=== PATIENT | female | born 1990 | race African-American/Black ===

== ENCOUNTER 2018-11-16 15:52 | Emergency (ER) | payer BC ==
[2018-11-16 16:03] VITALS: BP 111/74; PULSE 100; RESP 18; TEMP 98.6
[2018-11-16] MEDS ORDERED: SODIUM CHLORIDE 0.9% 1,000 ML IV ONE (16:15)
[2018-11-16 16:57] LABS: Basophils # (A) 0.1 k/uL (0-0.2); Basophils % (A) 1 %; Eosinophils # (A) 0.5 k/uL (0-0.7); Eosinophils % (A) 6 %; HCT 41.1 % (34.0-46.0); HGB 13.6 gm/dL (11.4-16.0); Lymphocytes # (A) 2.9 k/uL (1.0-4.8); Lymphocytes % (A) 35 %; MCH 28.2 pg (25.0-35.0); MCHC 33.1 g/dL (31.0-37.0); Mean Platelet Volume 5.7; Monocytes # (A) 0.3 k/uL (0-1.0); Monocytes % (A) 3 %; Neutrophils # (A) 4.3 k/uL (1.3-7.7); Neutrophils % (A) 53 %; Platelet Count 382 k/uL (150-450); RBC 4.83 m/uL (3.80-5.40); RDW 12.6 % (11.5-15.5); WBC 8.1 k/uL (3.8-10.6)
[2018-11-16 17:00] LABS: Appearance,Urine Cloudy (Clear); Bilirubin,Urine Negative (Negative); Blood,Urine Trace (Negative); Color,Urine Yellow; Glucose,Urine (UA) Negative (Negative); Ketones,Urine Negative (Negative); Leukocyte Esterase,Urine Large (Negative); Mucus,Urine Few /hpf; Nitrite,Urine Negative (Negative); Protein,Urine Trace (Negative); RBC,Urine 3 /hpf (0-5); Specific Gravity,Urine 1.025 (1.001-1.035); Squamous Epithelial Cell,Urine 11 /hpf (0-4); Urobilinogen,Urine <2.0 mg/dL (<2.0); WBC,Urine 4 /hpf (0-5)
[2018-11-16 17:01] LABS: ALT 14 U/L (9-52); AST 18 U/L (14-36); African American GFR (CKD) >90 (>60 ml/min/1.73 sqM); Albumin 4.2 g/dL (3.5-5.0); Alkaline Phosphatase 56 U/L (38-126); Anion Gap 7 mmol/L; Blood Urea Nitrogen 13 mg/dL (7-17); Calcium 9.7 mg/dL (8.4-10.2); Carbon Dioxide 28 mmol/L (22-30); Chloride 106 mmol/L (98-107); Glucose 79 mg/dL (74-99); Potassium 3.9 mmol/L (3.5-5.1); Sodium 141 mmol/L (137-145); Total Bilirubin 0.6 mg/dL (0.2-1.3); Total Protein 7.2 g/dL (6.3-8.2)
--- NOTE | 2018-11-16 17:22 | ED ---
Female Urogenital HPI - General Chief complaint: Urogenital Stated complaint: test Time Seen by Provider: 11/16/18 16:15 Source: patient, RN notes reviewed, old records reviewed Mode of arrival: ambulatory Limitations: no limitations - History of Present Illness Initial comments: This is a 27-year-old female the ER for evaluation. Positive . Patient has recent history of last menstrual period 2 weeks ago. Patient has had positive past test at home in with vaginal bleeding today. Some abdominal cramping mild nausea no vomiting no prior history of . MD Complaint: vaginal bleeding, pelvic pain (Rapid) -: days(s) Location: suprapubic Radiation: non-radiating Severity: mild Severity scale (1-10): 2 Quality: cramping Consistency: intermittent Improves with: none Worsens with: none Last Menstrual Period: 10/14/18 Patient : Yes Associated Symptoms: vaginal bleeding, abdominal pain - Related Data Home Medications Medication Instructions Recorded Confirmed Albuterol Inhaler [Ventolin Hfa 1 - 2 puff INHALATION RT-Q6H PRN 11/16/18 Inhaler] Multivitamin [Multivitamins Adult 2 tab PO DAILY 11/16/18 11/16/18 Gummies] Allergies Allergy/AdvReac Type Severity Reaction Status Date / Time No Known Allergies Allergy Verified 11/16/18 16:40 Review of Systems ROS Statement: Those systems with pertinent positive or pertinent negative responses have been documented in the HPI. ROS Other: All systems not noted in ROS Statement are negative. Past Medical History Past Medical History: Asthma History of Any Multi-Drug Resistant Organisms: None Reported Past Surgical History: No Surgical Hx Reported Past Psychological History: ADD/ADHD Smoking Status: Current every day smoker Past Alcohol Use History: Occasional Past Drug Use History: None Reported General Exam Limitations: no limitations General appearance: alert, in no apparent distress Head exam: Present: atraumatic, normocephalic, normal inspection Eye exam: Present: normal appearance, EOMI. Absent: scleral icterus, conjunctival injection, periorbital swelling ENT exam: Present: normal exam, mucous membranes moist Neck exam: Present: normal inspection. Absent: tenderness, meningismus, lymphadenopathy Respiratory exam: Present: normal lung sounds bilaterally. Absent: respiratory distress, wheezes, rales, rhonchi, stridor Cardiovascular Exam: Present: regular rate, normal rhythm, normal heart sounds. Absent: systolic murmur, diastolic murmur, rubs, gallop, clicks GI/Abdominal exam: Present: soft, normal bowel sounds. Absent: distended, tenderness, guarding, rebound, rigid Extremities exam: Present: normal inspection, full ROM, normal capillary refill. Absent: tenderness, pedal edema, joint swelling, calf tenderness Back exam: Present: normal inspection Neurological exam: Present: alert, oriented X3, CN II-XII intact Psychiatric exam: Present: normal affect, normal mood Skin exam: Present: warm, dry, intact, normal color. Absent: rash Course Vital Signs 11/16/18 16:00 Temperature 98.6 F Pulse Rate 100 Respiratory 18 Rate Blood Pressure 111/74 O2 Sat by Pulse 100 Oximetry - Reevaluation(s) Reevaluation #1: 11/16/18 17:22 Adequate record reviewed Reevaluation #2: 11/16/18 19:05 Spoke with patient was updated on results, questions are answered Medical Decision Making - Medical Decision Making 27 female the ER for evaluation evaluating of bleeding in . Patient is blood type positive, no significant vaginal bleeding in the ER 8 only 700, ultrasound as expected negative. Patient will return for repeat beta hCG testing and outpatient lab in 2 days. Patient is no acute distress and can be discharged home - Lab Data Result diagrams: 11/16/18 16:30 11/16/18 16:30 Lab Results 11/16/18 11/16/18 11/16/18 Range/Units 16:30 16:30 16:30 WBC 8.1 (3.8-10.6) k/uL RBC 4.83 (3.80-5.40) m/uL Hgb 13.6 (11.4-16.0) gm/dL Hct 41.1 (34.0-46.0) % MCV 85.0 (80.0-100.0) fL MCH 28.2 (25.0-35.0) pg MCHC 33.1 (31.0-37.0) g/dL RDW 12.6 (11.5-15.5) % Plt Count 382 (150-450) k/uL Neutrophils % 53 % Lymphocytes % 35 % Monocytes % 3 % Eosinophils % 6 % Basophils % 1 % Neutrophils # 4.3 (1.3-7.7) k/uL Lymphocytes # 2.9 (1.0-4.8) k/uL Monocytes # 0.3 (0-1.0) k/uL Eosinophils # 0.5 (0-0.7) k/uL Basophils # 0.1 (0-0.2) k/uL PT (9.0-12.0) sec INR (<1.2) APTT (22.0-30.0) sec Sodium 141 (137-145) mmol/L Potassium 3.9 (3.5-5.1) mmol/L Chloride 106 (98-107) mmol/L Carbon Dioxide 28 (22-30) mmol/L Anion Gap 7 mmol/L BUN 13 (7-17) mg/dL Creatinine 0.89 (0.52-1.04) mg/dL Est GFR (CKD-EPI)AfAm >90 (>60 ml/min/1.73 sqM) Est GFR (CKD-EPI)NonAf 90 (>60 ml/min/1.73 sqM) Glucose 79 (74-99) mg/dL Calcium 9.7 (8.4-10.2) mg/dL Total Bilirubin 0.6 (0.2-1.3) mg/dL AST 18 (14-36) U/L ALT 14 (9-52) U/L Alkaline Phosphatase 56 (38-126) U/L Total Protein 7.2 (6.3-8.2) g/dL Albumin 4.2 (3.5-5.0) g/dL HCG, Quant mIU/mL Urine Color Urine Appearance (Clear) Urine pH (5.0-8.0) Ur Specific [place] (1.001-1.035) Urine Protein (Negative) Urine Glucose (UA) (Negative) Urine Ketones (Negative) Urine Blood (Negative) Urine Nitrite (Negative) Urine Bilirubin (Negative) Urine Urobilinogen (<2.0) mg/dL Ur Leukocyte Esterase (Negative) Urine RBC (0-5) /hpf Urine WBC (0-5) /hpf Ur Squamous Epith Cells (0-4) /hpf Urine Mucus (None) /hpf Urine HCG, Qual (Not Detectd) Blood Type O Positive Blood Type Recheck No Previous Record Bld Type Recheck Status ABR ONLY 09/30/19 09/30/19 09/30/19 Range/Units 16:30 16:30 16:30 WBC (3.8-10.6) k/uL RBC (3.80-5.40) m/uL Hgb (11.4-16.0) gm/dL Hct (34.0-46.0) % MCV (80.0-100.0) fL MCH (25.0-35.0) pg MCHC (31.0-37.0) g/dL RDW (11.5-15.5) % Plt Count (150-450) k/uL Neutrophils % % Lymphocytes % % Monocytes % % Eosinophils % % Basophils % % Neutrophils # (1.3-7.7) k/uL Lymphocytes # (1.0-4.8) k/uL Monocytes # (0-1.0) k/uL Eosinophils # (0-0.7) k/uL Basophils # (0-0.2) k/uL PT 11.0 (9.0-12.0) sec INR 1.0 (<1.2) APTT 27.0 (22.0-30.0) sec Sodium (137-145) mmol/L Potassium (3.5-5.1) mmol/L Chloride (98-107) mmol/L Carbon Dioxide (22-30) mmol/L Anion Gap mmol/L BUN (7-17) mg/dL Creatinine (0.52-1.04) mg/dL Est GFR (CKD-EPI)AfAm (>60 ml/min/1.73 sqM) Est GFR (CKD-EPI)NonAf (>60 ml/min/1.73 sqM) Glucose (74-99) mg/dL Calcium (8.4-10.2) mg/dL Total Bilirubin (0.2-1.3) mg/dL AST (14-36) U/L ALT (9-52) U/L Alkaline Phosphatase (38-126) U/L Total Protein (6.3-8.2) g/dL Albumin (3.5-5.0) g/dL HCG, Quant mIU/mL Urine Color Yellow Urine Appearance Cloudy H (Clear) Urine pH 6.0 (5.0-8.0) Ur Specific [place] 1.025 (1.001-1.035) Urine Protein Trace H (Negative) Urine Glucose (UA) Negative (Negative) Urine Ketones Negative (Negative) Urine Blood Trace H (Negative) Urine Nitrite Negative (Negative) Urine Bilirubin Negative (Negative) Urine Urobilinogen <2.0 (<2.0) mg/dL Ur Leukocyte Esterase Large H (Negative) Urine RBC 3 (0-5) /hpf Urine WBC 4 (0-5) /hpf Ur Squamous Epith Cells 11 H (0-4) /hpf Urine Mucus Few H (None) /hpf Urine HCG, Qual Detected (Not Detectd) Blood Type Blood Type Recheck Bld Type Recheck Status 11/16/18 Range/Units 16:30 WBC (3.8-10.6) k/uL RBC (3.80-5.40) m/uL Hgb (11.4-16.0) gm/dL Hct (34.0-46.0) % MCV (80.0-100.0) fL MCH (25.0-35.0) pg MCHC (31.0-37.0) g/dL RDW (11.5-15.5) % Plt Count (150-450) k/uL Neutrophils % % Lymphocytes % % Monocytes % % Eosinophils % % Basophils % % Neutrophils # (1.3-7.7) k/uL Lymphocytes # (1.0-4.8) k/uL Monocytes # (0-1.0) k/uL Eosinophils # (0-0.7) k/uL Basophils # (0-0.2) k/uL PT (9.0-12.0) sec INR (<1.2) APTT (22.0-30.0) sec Sodium (137-145) mmol/L Potassium (3.5-5.1) mmol/L Chloride (98-107) mmol/L Carbon Dioxide (22-30) mmol/L Anion Gap mmol/L BUN (7-17) mg/dL Creatinine (0.52-1.04) mg/dL Est GFR (CKD-EPI)AfAm (>60 ml/min/1.73 sqM) Est GFR (CKD-EPI)NonAf (>60 ml/min/1.73 sqM) Glucose (74-99) mg/dL Calcium (8.4-10.2) mg/dL Total Bilirubin (0.2-1.3) mg/dL AST (14-36) U/L ALT (9-52) U/L Alkaline Phosphatase (38-126) U/L Total Protein (6.3-8.2) g/dL Albumin (3.5-5.0) g/dL HCG, Quant 702.3 mIU/mL Urine Color Urine Appearance (Clear) Urine pH (5.0-8.0) Ur Specific [place] (1.001-1.035) Urine Protein (Negative) Urine Glucose (UA) (Negative) Urine Ketones (Negative) Urine Blood (Negative) Urine Nitrite (Negative) Urine Bilirubin (Negative) Urine Urobilinogen (<2.0) mg/dL Ur Leukocyte Esterase (Negative) Urine RBC (0-5) /hpf Urine WBC (0-5) /hpf Ur Squamous Epith Cells (0-4) /hpf Urine Mucus (None) /hpf Urine HCG, Qual (Not Detectd) Blood Type Blood Type Recheck Bld Type Recheck Status - Radiology Data Radiology results: report reviewed (Ultrasound is negative for significant acute disease no topical or no free fluid no IUP), image reviewed Disposition Clinical Impression: Early stage of , Vaginal bleeding during , Threatened a bortion Disposition: HOME SELF-CARE Condition: Good Instructions (If sedation given, give patient instructions): (ED), Threatened Miscarriage (ED), Ectopic (DC) Is patient prescribed a controlled substance at d/c from ED?: No Referrals: None,Stated [Primary Care Provider] - 1-2 days
--- NOTE | 2018-11-16 17:58 | US ---
EXAMINATION TYPE: Transabdominal DATE OF EXAM: 11/16/2018 5:30 PM COMPARISON: NONE CLINICAL HISTORY: pain. Spotted yesterday not today. EXAM PERFORMED: Transabdominal (TA) EXAM MEASUREMENTS: GESTATIONAL AGE / DATING Physician Established: Not yet established Dates by LMP: LMP unknown Dates by First Scan: No previous this is first scan Dates by Current Scan for: No IUP seen at this time MATERNAL ANATOMY Uterus: 8.0 x 5.4 x 5.3 cm Right Ovary: 2.5 x 1.5 x 1.9 cm Left Ovary: 2.6 x 2.3 x 2.7 cm Post CDS / Adnexa: wnl Presence of free fluid: no Presence of corpus luteal cyst: no Presence of subchorionic bleed: no GESTATION / SURVEY IUP: No IUP seen at this time Beta HcG (if available): Detected IMPRESSION: Empty uterus. No adnexal mass or free fluid. No evidence of a gestational sac.
== END 2018-11-16 19:20 | disposition home or self-care (01) ==
LOC: EC 15:52
DX: O20.0 Threatened abortion (principal); O99.519 Diseases of the respiratory system complicating pregnancy, unspecified trimester; J45.909 Unspecified asthma, uncomplicated; O99.330 Smoking (tobacco) complicating pregnancy, unspecified trimester; F17.200 Nicotine dependence, unspecified, uncomplicated; Z79.899 Other long term (current) drug therapy; Z3A.00 Weeks of gestation of pregnancy not specified
CPT/HCPCS: 36415; 76801; 80053; 81001; 81025; 84702; 85025; 85610; 85730; 86900; 86901; 96360; 99284

== ENCOUNTER → 2018-11-20 | Outpatient (CLI) | payer BC | END | disposition home or self-care (01) | LOC: LABWHC1 11:19 | PROVIDERS: ATTEND Emergency Medicine | DX: O20.0 Threatened abortion (principal); Z3A.00 Weeks of gestation of pregnancy not specified | CPT/HCPCS: 36415; 84702 ==

== ENCOUNTER 2019-04-12 18:32 | Outpatient (CLI) | payer BC ==
[2019-04-12 19:02] VITALS: BP 115/63; PULSE 83; RESP 16; TEMP 97.6
--- NOTE | 2019-04-18 11:14 | P.MSEPDOC ---
Presenting Problems - Arrival Data Date of Arrival on Unit: 04/12/19 Time of Arrival on Unit: 18:32 Mode of Transport: Ambulatory - Complaint OB-Reason for Admission/Chief Complaint: Other Comment: abdominal pain when pt bends over or sits down a work, pt points to lower abdomen Medical History - Information : 1 Para: 0 Term: 0 : 0 Abortions: Spontaneous or Elective: 0 Number of Living Children: 0 - Gestational Age Gestational Age by BARAK (wks/days): 25 Weeks and 1 Days Review of Systems - Review of Systems Constitutional: No problems Breast: No problems ENT: No problems Cardiovascular: No problems Respiratory: No problems Gastrointestinal: No problems Genitourinary: No problems Musculoskeletal: No problems Neurological: No problems Skin: No problems Vital Signs - Temperature Temperature: 97.6 F Temperature Source: Oral - Pulse Right Sitting Brachial Pulse Rate: 83 Pulse Assessment Method: Automatic Cuff - Respirations Respiratory Rate: 16 O2 Sat by Pulse Oximetry: 99 - Blood Pressure Right Arm Blood Pressure: 115/63 Blood Pressure Mean: 80 Blood Pressure Source: Automatic Cuff Medical Screen Scoring (Pre) - Cervical Exam Dilation: Exam Deferred Effacement: Exam Deferred Membranes: Intact - Uterine Contractions Frequency: N/A Duration: N/A Intensity: N/A - Maternal Vital Signs Maternal Temperature: N/A Signs of Preeclampsia: N/A Maternal Respirations: N/A - Maternal Trauma Maternal Trauma: N/A - Assessment - Baby A Baseline FHR: 150 Heart Rate - NICHD Category: Category I (Normal) = 0 Position: N/A - Total Score - Baby A Total Score - Baby A: 0 - Total Score - Baby B Total Score - Baby B: 0 - Total Score - Baby C Total Score - Baby C: 0 - Level of Risk - Baby A Level of Risk - Baby A: Low (0-5) - Level of Risk - Baby B Level of Risk - Baby B: Low (0-5) - Level of Risk - Baby C Level of Risk - Baby C: Low (0-5) Physician Notification (Pre) - Physician Notified Physician Notified Date: 04/12/19 Physician Notified Time: 18:50 New Order Received: Yes Disposition - Disposition OB Disposition: Physician follow up in office, Discharge to home, Written follow up instructions reviewed Discharge Date: 04/12/19 Discharge Time: 18:55 I agree with the RN Medical Screening Exam: Yes Risk & Benefit of care provided described in d/c instruction: Yes Diagnosis: RELATED CONDITIONS, UNSPECIFIED, SECOND TRIMESTER
== END 2019-04-12 18:55 | disposition home or self-care (01) ==
LOC: FBPOP 18:32
PROVIDERS: ATTEND Obstetrics & Gynecology
DX: O26.92 Pregnancy related conditions, unspecified, second trimester (principal); Z3A.25 25 weeks gestation of pregnancy
CPT/HCPCS: 99213

== ENCOUNTER 2019-07-19 12:42 | Inpatient (IN) | payer BC, OTHER ==
[2019-07-19] MEDS ORDERED: OXYTOCIN 10 UNIT/ML 1 ML VIAL IM PRN (13:31)
[2019-07-19] MEDS ORDERED: LIDOCAINE 0.5% (PF) 5 MG/ML (50 ML SDV) SQ PRN (13:31)
[2019-07-19] MEDS ORDERED: METHYLERGONOVINE 0.2 MG/ML 1 ML AMP IM PRN (13:31)
[2019-07-19] MEDS ORDERED: CARBOPROST TROMETHAMINE 250 MCG/ML 1 ML AMP IM PRN (13:31)
[2019-07-19] MEDS ORDERED: TERBUTALINE 1 MG/ML VIAL SQ PRN (13:31)
[2019-07-19] MEDS ORDERED: PENICILLIN G POTASSIUM 5,000,000 UNIT in DEXTROSE 5% IN WATER 100 ML IVPB STA ×2 (13:31)
[2019-07-19] MEDS ORDERED: OXYTOCIN 30 UNITS/500 ML NS 30 UNIT in SALINE 1 500ML.BAG IV SCH (13:45)
[2019-07-19] MEDS: LACTATED RINGERS 1,000 ML IV SCH ×3 (14:04→18:28)
[2019-07-19 14:52] LABS: Basophils % (A) 1 %; Eosinophils # (A) 0.3 k/uL (0-0.7); Eosinophils % (A) 3 %; HCT 35.9 % (34.0-46.0); HGB 11.2 gm/dL (11.4-16.0); Hypochromasia Slight; Lymphocytes # (A) 1.8 k/uL (1.0-4.8); Lymphocytes % (A) 21 %; MCH 27.5 pg (25.0-35.0); MCHC 31.2 g/dL (31.0-37.0); MCV 88.3 fL (80.0-100.0); Mean Platelet Volume 7.9; Monocytes # (A) 0.3 k/uL (0-1.0); Monocytes % (A) 4 %; Neutrophils # (A) 5.8 k/uL (1.3-7.7); Neutrophils % (A) 70 %; Platelet Count 254 k/uL (150-450); RBC 4.06 m/uL (3.80-5.40); RDW 14.2 % (11.5-15.5); WBC 8.3 k/uL (3.8-10.6)
[2019-07-19] MEDS ORDERED: BUTORPHANOL 1 MG/ML 1 ML VIAL IV PRN (15:37)
--- NOTE | 2019-07-19 15:49 | P.HPOB ---
History of Present Illness H&P Date: 07/19/19 Chief Complaint: Rupture of membranes This is a 28 year old 1 para 0 with an estimated due date of 07/25/2019 based on first trimester ultrasound. She presents with spontaneous rupture of membranes at approximately 9 PM on 07/17/2019. She did not have any contracti ons and eventually presented to labor and delivery triage at approximately 1 PM today. Rupture of membranes was confirmed and she was very irregularly keshav. Her has been otherwise uncomplicated. She had anti- Burton a antibodies on her initial antibody screen. Of note on admission here her antibody screen is negative. Laboratory data: Blood type O+, current antibody screen negative, rubella immune, VDRL nonreactive, hepatitis B surface antigen negative, gonorrhea and clinic cultures recently negative, group B strep negative, glucose tolerance testing within normal limits Review of Systems All systems: negative Past Medical History Past Medical History: Asthma History of Any Multi-Drug Resistant Organisms: None Reported Past Surgical History: No Surgical Hx Reported Past Anesthesia/Blood Transfusion Reactions: No Reported Reaction Past Psychological History: ADD/ADHD Smoking Status: Former smoker Past Alcohol Use History: Occasional Past Drug Use History: None Reported Medications and Allergies Home Medications Medication Instructions Recorded Confirmed Type Pnv No.95/Ferrous Fum/Folic AC 1 tab PO HS 04/12/19 07/19/19 History [ Multivitamin Tablet] Albuterol Inhaler [Ventolin Hfa 1 puff INHALATION RT-QID PRN 07/19/19 07/19/19 History Inhaler] Allergies Allergy/AdvReac Type Severity Reaction Status Date / Time No Known Allergies Allergy Verified 07/19/19 13:12 Exam Vital Signs Temp Pulse Resp BP Pulse Ox 07/19/19 14:17 97.4 F L 94 16 131/86 98 07/19/19 14:14 97.3 F L 81 16 98/54 98 Intake and Output 07/19/19 07/19/19 07/19/19 06:59 14:59 22:59 Other: Weight 68.039 kg Upon my initial evaluation the patient is resting comfortably in bed. She is on a visibly gravid -English female in no obvious distress. Targeted physical exam is performed. On pelvic examination the cervix is 4 cm dilated, 80% effaced and the vertex is in the 0 station. Clear copious fluid is noted. Contractions are irregular with a Pitocin of 7 mU/m. heart tones are currently category 1. Results Result Diagrams: 07/19/19 13:55 Abnormal Lab Results - Last 24 Hours (Table) 07/19/19 Range/Units 13:55 Hgb 11.2 L (11.4-16.0) gm/dL Assessment and Plan (1) 39 weeks gestation of Current Visit: Yes Status: Acute Code(s): Z3A.39 - 39 WEEKS GESTATION OF SNOMED Code(s): 92377901 (2) Premature rupture of membranes Current Visit: Yes Status: Acute Code(s): O42.90 - CHILO ROM, 7TH0 BETW RUPT & ONST LABR, UNSP WEEKS OF GEST SNOMED Code(s): 19132586 Plan: 28-year-old 1 para 0 woman with premature rupture of membranes at 39 and one sevenths weeks gestation. Pitocin induction of labor has been initiated as well as prophylactic antibiotics for prolonged rupture of membranes. She is group B strep negative. Her antibody screen is also negative although she had a history of and tied with a antibodies on her initial screening. This is not associated with hydropic disease of the . Plan for induction as well as antibiotics are reviewed with the patient and her mother in detail and all questions were answered. status is currently reassuring. I anticipate normal spontaneous vaginal delivery.
[2019-07-19] MEDS: PENICILLIN G POTASSIUM 2,500,000 UNIT in DEXTROSE 5% IN WATER 100 ML IVPB SCH ×4 (18:06→22:02)
[2019-07-19] MEDS ORDERED: ROPIVACAINE 100 MG, fentaNYL (PF) 200 MCG in SODIUM CHLORIDE 0.9% 76 ML EPIDURAL ONE (18:20)
[2019-07-19] MEDS ORDERED: HYDROCORTISONE 2.5% RECTAL CREAM 30 GM TUBE RECTAL PRN (23:34)
[2019-07-19] MEDS ORDERED: ACETAMINOPHEN TAB 325 MG TAB PO PRN (23:34)
[2019-07-19] MEDS ORDERED: diphenhydrAMINE 50 MG/ML 1 ML VIAL IVP PRN ×2 (23:34)
[2019-07-19] MEDS ORDERED: diphenhydrAMINE 50 MG CAP PO PRN (23:34)
[2019-07-19] MEDS ORDERED: LANOLIN CREAM 5 GM TUBE TOPICAL PRN (23:34)
[2019-07-19] MEDS ORDERED: BENZOCAINE/MENTHOL SPRAY 1 GM/SPRAY AEROSOL TOPICAL PRN (23:34)
[2019-07-19] MEDS ORDERED: ZOLPIDEM 5 MG TAB PO PRN (23:34)
[2019-07-19] MEDS ORDERED: SIMETHICONE 80 MG CHEWABLE PO PRN (23:34)
[2019-07-19] MEDS ORDERED: WITCH HAZEL 1 EACH MED..PAD TOPICAL PRN (23:34)
[2019-07-19] MEDS ORDERED: diphenhydrAMINE 25 MG CAP PO PRN (23:34)
--- NOTE | 2019-07-19 23:34 | P.PROBDLV ---
Vaginal Delivery Note - . Vaginal Delivery Note: Findings: Female in the vertex right occiput anterior position with Apgars of 9 at 1 minute and 9 at 5 minutes weighing 5 lbs. 13 oz., 2650 g. Intact, three-vessel cord placenta. No perineal lacerations. EBL 50 mL's. Delivery summary: This is a 28-year-old 1 para 0 woman who presented at 39 and one sevenths weeks gestation with spontaneous rupture of membranes at approximately 9 PM on 07/17/2019. She presented the following day when rupture of membranes was confirmed. She was not in active labor. Pitocin induction of labor was initiated as well as prophylactic antibiotics for prolonged rupture of membranes. She was afebrile. On admission she was approximately 3-4 cm dilated. She did eventually receive an epidural anesthetic. She reached complete cervical dilation by approximately 2245. She then commenced pushing with excellent maternal effort. During the second stage of labor she had some variable heart rate deceleration with overall good return to baseline. With , she was repositioned, prepped and draped in the modified [place] position. With additional maternal effort the head delivered from the right occiput anterior position. Nuchal cord 1 was reduced. The anterior followed by the posterior shoulders were then delivered without difficulty and the rest the infant was delivered onto the field. The nose and mouth were bulb suctioned. The was placed on the maternal abdomen. Eventually the cord was clamped and cut. Apgars were 9 at 1 minute and 9 at 5 minutes and weight was 5 lbs. 13 oz. An intact, three-vessel cord placenta was delivered after an approximately 5 minute third stage of labor. The vagina was further inspected as well as the cervix and no lacerations were noted. The uterus was massaged and was noted to be firm. Patient received Pitocin following the third stage of labor. Both mother and infant were doing well post delivery in the room. All counts were correct.
[2019-07-19] MEDS ORDERED: OXYTOCIN 20 UNITS/1000 ML NS 1,000 ML IV SCH (23:45)
[2019-07-20] MEDS: PENICILLIN G POTASSIUM 2,500,000 UNIT in DEXTROSE 5% IN WATER 100 ML IVPB SCH ×2 (02:36)
[2019-07-20 05:59] LABS: Basophils % (A) 0 %; Eosinophils # (A) 0.1 k/uL (0-0.7); Eosinophils % (A) 1 %; HCT 32.9 % (34.0-46.0); HGB 10.7 gm/dL (11.4-16.0); Hypochromasia Slight; Lymphocytes # (A) 1.5 k/uL (1.0-4.8); Lymphocytes % (A) 11 %; MCH 28.8 pg (25.0-35.0); MCHC 32.4 g/dL (31.0-37.0); MCV 88.7 fL (80.0-100.0); Mean Platelet Volume 8.4; Monocytes # (A) 0.5 k/uL (0-1.0); Monocytes % (A) 4 %; Neutrophils # (A) 10.6 k/uL (1.3-7.7); Neutrophils % (A) 83 %; Platelet Count 224 k/uL (150-450); RBC 3.71 m/uL (3.80-5.40); WBC 12.7 k/uL (3.8-10.6)
[2019-07-20] MEDS: SENNOSIDES-DOCUSATE SODIUM 1 EACH TAB PO SCH ×2 (08:14→20:16)
--- NOTE | 2019-07-20 10:35 | P.PNOBGVD ---
Subjective - Subjective Principal diagnosis: day 1 Patient reports: Reports appetite normal, Reports voiding normally, Reports pain well controlled, Reports ambulating normally [place]: doing well, nursing well Objective - Latest Vital Signs Latest vital signs: Vital Signs Temp Pulse Pulse Resp BP Pulse Ox 07/20/19 08:00 98.3 F 89 18 107/67 98 07/20/19 04:00 98.6 F 84 16 107/73 07/20/19 01:30 97.6 F 83 16 111/73 07/20/19 01:00 98 16 118/61 07/20/19 00:30 97 16 109/73 07/20/19 00:15 87 16 123/63 07/20/19 00:00 100 16 108/60 07/19/19 23:45 98 16 122/64 07/19/19 23:30 101 H 16 111/78 07/19/19 14:17 97.4 F L 94 16 131/86 98 07/19/19 14:14 97.3 F L 81 16 98/54 98 Intake and Output 07/19/19 07/20/19 07/20/19 22:59 06:59 14:59 Intake Total 499.5 Output Total 200 Balance -200 499.5 Intake: Intake, IV Titration 499.5 Amount Oxytocin 20 Units/1000 ml 499.5 Ns 1,000 ml @ Per Protocol IV .Q0M [facility] Rx#: [id number] Output: Urine 200 Other: # Voids 1 1 1 # [place] 1 - Exam Extremities: Present: normal Abdomen: Present: normal appearance, soft Uterus: Present: normal, firm. Absent: tenderness - Labs Labs: Abnormal Lab Results - Last 24 Hours (Table) 07/19/19 07/20/19 Range/Units 13:55 05:42 WBC 12.7 H (3.8-10.6) k/uL RBC 3.71 L (3.80-5.40) m/uL Hgb 11.2 L 10.7 L (11.4-16.0) gm/dL Hct 32.9 L (34.0-46.0) % Neutrophils # 10.6 H (1.3-7.7) k/uL Assessment and Plan (1) 39 weeks gestation of Current Visit: Yes Status: Acute Code(s): Z3A.39 - 39 WEEKS GESTATION OF SNOMED Code(s): 94202644 (2) Premature rupture of membranes Current Visit: Yes Status: Acute Code(s): O42.90 - CHILO ROM, 7TH0 BETW RUPT & ONST LABR, UNSP WEEKS OF GEST SNOMED Code(s): 06583582 (3) Normal spontaneous vaginal delivery Current Visit: Yes Status: Acute Code(s): O80 - ENCOUNTER FOR FULL-TERM UNCOMPLICATED DELIVERY SNOMED Code(s): 42211665 (4) Nuchal cord Current Visit: Yes Status: Acute Code(s): O69.81X0 - LABOR AND DEL COMP BY CORD AROUND NECK, W/O COMPRSN, UNSP SNOMED Code(s): 000919934 Plan: day 1 status post normal spontaneous vaginal delivery. Recovering well. Routine care. Anticipate discharge home tomorrow.
[2019-07-20] MEDS: IBUPROFEN 600 MG TAB PO PRN (17:09)
[2019-07-20 23:29] VITALS: RESP 16
--- NOTE | 2019-07-21 08:04 | P.DS ---
Providers Date of admission: 07/19/19 13:27 Expected date of discharge: 07/21/19 Attending physician: Neelam Zambrano Primary care physician: Stated None - Discharge Diagnosis(es) (1) 39 weeks gestation of Current Visit: Yes Status: Acute (2) Premature rupture of membranes Current Visit: Yes Status: Acute (3) Normal spontaneous vaginal delivery Current Visit: Yes Status: Acute (4) Nuchal cord Current Visit: Yes Status: Acute Hospital Course: This is a 28-year-old 1 now para 1 woman who presented at 39 weeks gestation with spontaneous rupture of membranes approximately 18 hours prior to admission. She was not actively laboring and underwent Pitocin induction of labor. She received an epidural anesthetic as well as prophylactic antibiotics for prolonged rupture of membranes. She went on to have an uncomplicated delivery of a liveborn female over an intact perineum. Weight was 5 lbs. 13 oz. and Apgars were 9 at 1 minute and 9 at 5 minutes. The patient's course was entirely unremarkable. By day #1 she was ambulating and voiding without difficulty and her lochia was moderate. She was breast-feeding. By day #2 she continued to do extremely well with stable vital signs and minimal lochia. She is therefore discharged home with routine instructions for care and follow-up. Procedures: Epidural anesthetic Normal spontaneous vaginal delivery Patient Condition at Discharge: Good Plan - Discharge Summary Discharge Rx Participant: Yes New Discharge Prescriptions: No Action Pnv No.95/Ferrous Fum/Folic AC [ Multivitamin Tablet] 1 tab PO HS Albuterol Inhaler [Ventolin Hfa Inhaler] 1 puff INHALATION RT-QID PRN PRN Reason: Asthma Discharge Medication List Pnv No.95/Ferrous Fum/Folic AC [ Multivitamin Tablet] 1 tab PO HS 04/12/19 [History] Albuterol Inhaler [Ventolin Hfa Inhaler] 1 puff INHALATION RT-QID PRN 07/19/19 [History] Activity/Diet/Wound Care/Special Instructions: Follow-up in the office in 6 weeks . Call with any concerning signs or symptoms including heavy vaginal bleeding, severe abdominal pain, fever greater than 101, swelling or redness of the lower extremities, foul vaginal discharge, or signs of depression. Nothing in the vagina for 6 weeks after delivery, specifically no intercourse. Discharge Disposition: HOME SELF-CARE
[2019-07-21] MEDS: SENNOSIDES-DOCUSATE SODIUM 1 EACH TAB PO SCH (11:05)
[2019-07-21 15:55] VITALS: BP 103/41; PULSE 85; TEMP 98.4
[2019-07-21] MEDS: IBUPROFEN 600 MG TAB PO PRN (15:58)
== END 2019-07-21 18:23 | disposition home or self-care (01) | DRG 807 ==
LOC: FBPOP 12:42 → 4FBP 13:27
PROVIDERS: ADMIT Obstetrics & Gynecology; ATTEND Obstetrics & Gynecology
PROC: 10E0XZZ Delivery of Products of Conception, External Approach (ICD-10-PCS; principal; 2019-07-19)
PROC: 3E033VJ Introduction of Other Hormone into Peripheral Vein, Percutaneous Approach (ICD-10-PCS; 2019-07-19)
DX: O42.02 Full-term premature rupture of membranes, onset of labor within 24 hours of rupture (principal); Z37.0 Single live birth; O99.52 Diseases of the respiratory system complicating childbirth; J45.909 Unspecified asthma, uncomplicated; F90.9 Attention-deficit hyperactivity disorder, unspecified type; O99.344 Other mental disorders complicating childbirth; O76 Abnormality in fetal heart rate and rhythm complicating labor and delivery; O69.81X0 Labor and delivery complicated by cord around neck, without compression, not applicable or unspecified; Z87.891 Personal history of nicotine dependence; Z79.899 Other long term (current) drug therapy; Z3A.39 39 weeks gestation of pregnancy
CPT/HCPCS: 59025; 84112; 85025; 86850; 86900; 86901; 99213